=== PATIENT | male | born 1955 | race Caucasian/White ===

== ENCOUNTER 2017-08-29 08:35 | Day surgery (SDC) | payer BC, OTHER ==
[~2017-08-29 08:35] MED LIST: Lactated Ringers 1,000 ML IV SCH
[2017-08-29] MEDS ORDERED: Propofol 200 MG/20 ML SDV ONE ×2 (10:50→11:05)
[2017-08-29] MEDS ORDERED: fentaNYL 100 MCG/2 ML SDV ONE (10:50)
--- NOTE | 2017-08-29 17:45 | OR ---
DATE OF SURGERY: 08/29/2017 REFERRING PROVIDER: DANIELA Kohli PRIMARY CARE PHYSICIAN: Zion Raman M.D. PRE-OPERATIVE DIAGNOSES: Positive FIT stool card. This is the patient's first colonoscopy. There is no known family history of colon cancer or colon polyps. POST-OPERATIVE DIAGNOSES: 1. Total of 4 colon polyps removed. a. 8 mm cecal polyp removed with hot snare. b. 5 mm polyp at 90 cm (just outside the cecum) removed with hot snare. c. 6 mm polyp at 55 cm removed with hot snare. d. 3 mm polyp at 45 cm removed with cold forceps. 2. Mild sigmoid diverticulosis. PROCEDURE: Colonoscopy with polypectomy x4 (3 using hot snare and 1 using cold forceps). SURGEON: Mayito Whitehead M.D. ANESTHESIA: Monitored anesthesia care. BOWEL PREP: Good. Wojciech is a 62-year-old male who was brought to the endoscopy suite after discussing risks and benefits of the procedure. Informed consent was obtained for conscious sedation and colonoscopy with or without biopsy and/or polypectomy. We also discussed possibility of missed lesions. Pre-procedure exam was unremarkable. IV, oxygen, and monitors were placed. The patient was placed in the left lateral decubitus position. Sedation was administered and a digital rectal exam was performed which was unremarkable. Colonoscope was passed into the rectum and slowly advanced all the way to the cecum. Cecum was viewed and photographed. There was an 8 mm sessile cecal polyp which was removed with hot snare. Just outside the cecum there was a 5 mm polyp at 90 cm, also removed with hot snare. The colonoscope was slowly withdrawn and the mucosa was closed observed in a direct circumferential manner. Otherwise the ascending colon was unremarkable. The transverse colon revealed 6 mm polyp at 55 cm which was removed with hot snare. The descending colon revealed a 3 mm polyp at 45 cm which was removed with cold forceps. The sigmoid colon was remarkable for some mild diverticulosis. Retroflexion was performed and rectal mucosa was unremarkable. Scope was removed. The patient tolerated the procedure well. The patient was monitored until that baseline status. Discharge instructions were reviewed and the patient was discharged in good condition. COMPLICATIONS: None. TOTAL TIME: 22 minutes. ESTIMATED BLOOD LOSS: About 1 mL. RECOMMENDATIONS/FOLLOW-UP: We will wait results of path report to determine ideal followup interval. I would like to kindly thank Estuardo Pena for this referral. DMB: 08/29/2017 11:33:20 MODL: 08/29/2017 17:35:04 /[id number]
== END 2017-08-29 12:20 | disposition home or self-care (01) ==
LOC: VM.SDS 08:35
PROVIDERS: ATTEND Family Medicine
DX: Z12.11 Encounter for screening for malignant neoplasm of colon (principal); D12.0 Benign neoplasm of cecum; D12.4 Benign neoplasm of descending colon; D12.3 Benign neoplasm of transverse colon; K57.30 Diverticulosis of large intestine without perforation or abscess without bleeding; R19.5 Other fecal abnormalities; E78.5 Hyperlipidemia, unspecified; Z79.899 Other long term (current) drug therapy
CPT/HCPCS: 45380; 45385; J2704; J3010; J7120

== ENCOUNTER 2018-08-05 15:43 | Emergency (ER) | payer OTHER, BC ==
--- NOTE | 2018-08-05 16:22 | EDM.PDOC ---
ED HPI GENERAL MEDICAL PROBLEM - General Chief Complaint: Lower Extremity Injury/Pain Stated Complaint: Left lower back pain; head injury Time Seen by Provider: 08/05/18 16:00 Source of Information: Reports: Patient, RN, RN Notes Reviewed History Limitations: Reports: No Limitations - History of Present Illness INITIAL COMMENTS - FREE TEXT/NARRATIVE: Patient presents to the ED at [facility] after he sustained a posterior head injury and low back injury at work. Patient states he was walking across the cat walk when he misstepped, falling onto his left lateral hip and the back of his head. He denies any LOC. No previous injuries. He denies any headaches. No dizziness. Patient complaints of left lower back pain. No radiation of the pain. Patient denies any numbness, tingling, or paresthesia of any extremity. Onset: Today Onset Date: 08/05/18 Left Lumbar Pain Score (Numeric/FACES): 1 - Related Data Allergies Allergy/AdvReac Type Severity Reaction Status Date / Time No Known Allergies Allergy Verified 08/05/18 16:19 Home Meds: Home Meds [place]-3 Fatty Acids [[place]-3] 1,000 mg PO BID 08/26/17 [History] Saw [place] 2 cap PO DAILY 08/26/17 [History] atorvaSTATin [Lipitor] 40 mg PO BEDTIME 08/26/17 [History] Past Medical History HEENT History: Reports: None Cardiovascular History: Reports: None Respiratory History: Reports: None Gastrointestinal History: Reports: Other (See Below) Other Gastrointestinal History: BLOOD IN STOOL Genitourinary History: Reports: None Musculoskeletal History: Reports: None Other Musculoskeletal History: RIGHT WRIST FX. RIGHT KNEE PAIN Neurological History: Reports: None Psychiatric History: Reports: None Endocrine/Metabolic History: Reports: None Other Endocrine/Metabolic History: FATIGUE Hematologic History: Reports: None Oncologic (Cancer) History: Reports: None Dermatologic History: Reports: None - Past Surgical History HEENT Surgical History: Reports: None Cardiovascular Surgical History: Reports: None GI Surgical History: Reports: Cholecystectomy Musculoskeletal Surgical History: Reports: None Oncologic Surgical History: Reports: None Review of Systems - Review of Systems Review Of Systems: See Below Constitutional: Denies: Chills, Fever Respiratory: Denies: Shortness of Breath, Cough Cardiovascular: Denies: Chest Pain, Palpitations Musculoskeletal: Reports: Back Pain, Muscle Pain, Muscle Stiffness. Denies: Neck Pain, Shoulder Pain Skin: Reports: Wound Neurological: Denies: Dizziness, Headache, Numbness, Paresthesia, Tingling ED EXAM, GENERAL - Physical Exam Exam: See Below Exam Limited By: No Limitations General Appearance: Alert, No Apparent Distress Eye Exam: Bilateral Eye: EOMI, Normal Inspection, PERRL Ears: Normal External Exam, Normal Canal, Normal TMs Ear Exam: Bilateral Ear: TM normal Head: Normocephalic, Other (4cm posterior occipital scalp abrasion; no bleeding , clean, no infection) Neck: Supple, Non-Tender Respiratory/Chest: No Respiratory Distress, Lungs Clear, Normal Breath Sounds Cardiovascular: Normal Peripheral Pulses, Regular Rate, Rhythm Back Exam: Normal Inspection, Full Range of Motion, Paraspinal Tenderness (Left) Extremities: Normal Inspection Neurological: Alert, Oriented Skin Exam: Warm, Dry, Normal Color, Wound/Incision (4cm posterior occipital scalp abrasion) Course - Vital Signs Last Recorded V/S: Last Vital Signs Temp 37.3 C 08/05/18 16:00 Pulse 75 08/05/18 16:00 Resp 16 08/05/18 16:00 BP 155/81 H 08/05/18 16:00 Pulse Ox 98 08/05/18 16:00 - Radiology Interpretation Free Text/Narrative:: CT Head: No acute intracranial findings CT C-Spine: No acute fracture or compression deformity CT Lumbar: No acute fractures of the lumbar spine; there is an acute nondisplaced fractures of the sacrum involving the S3 and S4 posterior elements with overlying soft tissue contusion See scanned reports in EMR for details CT Results Date: 08/05/18 CT Results Time: 17:04 Departure - Departure Time of Disposition: 18:13 Disposition: Home, Self-Care 01 Condition: Good Clinical Impression: Encounter related to worker's compensation claim Fall Qualifiers: Encounter type: initial encounter Qualified Code(s): W19.XXXA - Unspecified fall, initial encounter Head injury Qualifiers: Encounter type: initial encounter Qualified Code(s): S09.90XA - Unspecified injury of head, initial encounter Scalp abrasion Qualifiers: Encounter type: initial encounter Qualified Code(s): S00.01XA - Abrasion of scalp, initial encounter Sacral fracture, closed Qualifiers: Encounter type: initial encounter Zone of sacrum fracture: zone III of sacrum Fracture alignment: nondisplaced Qualified Code(s): S32.130A - Nondisplaced Zone III fracture of sacrum, initial encounter for closed fracture - Discharge Information *PRESCRIPTION DRUG MONITORING PROGRAM REVIEWED*: Not Applicable *COPY OF PRESCRIPTION DRUG MONITORING REPORT IN PATIENT GREGORIO: Not Applicable Instructions: Abrasion, [id number], Tailbone Injury Referrals: Zion Raman MD [Primary Care Provider] - Forms: ED Department Discharge Additional Instructions: 1. Stay well hydrated and rest 2. Weight baring is ok 3. Contact your PCP is you develop problems with urination, bowel movements, and leg symptoms 4. No work restrictions 5. Call with any questions or concerns 6. See your PCP as symptoms warrant ED Communication - ED Communication Date/Time Date: 08/05/18 Time Called: 18:00 - Discussed Case With (1) Discussed Case With (1): Outpatient Provider (Gloria Blankenship) - Problem List Review Problem List Initiated/Reviewed/Updated: Yes - Assessment/Plan Assessment:: Fall Head injury Low back injury Sacral fractures Workers Comp Plan: Case discussed with Gloria Blankenship [place]. Recommendations made; no surgical intervention. See discharge instructions
--- NOTE | 2018-08-05 17:18 | CT ---
[id number] CT/CT Head WO IV; CT/CT Cervical Spine WO IV; CT/CT Lumbar Spine WO IV Exam: CT Head WO IV, CT Cervical Spine WO IV, CT Lumbar Spine WO IV Indication:FELL, HIT HEAD, NO LOSS OF CONSCIOUSNESS, LEFT LOWER Comparison: No prior imaging for comparison. Discussion: No acute intracranial hemorrhage or extra-axial fluid collection. No CT evidence of acute large vessel ischemia. No hydrocephalus. No calvarial fracture. CT cervical spine: Incomplete fusion of the C1 posterior arch, normal variant of anatomy. Moderate degenerative change at the atlantoaxial articulation. Scattered changes of mild to moderate spondylosis elsewhere in the spine, including C5-6 degenerative disc disease with disc osteophyte complex and intervertebral disc height loss. No acute fracture or compression deformity. No spondylolisthesis. Prevertebral soft tissues are normal thickness. Soft tissues of the neck are unremarkable. Lung apices are clear. CT lumbar spine: Acute nondisplaced fracture of the S3 spinous process, seen best on series 5 image 35. Additionally, there are acute fractures of the bilateral S3-4 articulating facets at the inferior margin of the sacral ala (series 4 images 80 through 83). There is no overlying soft tissue contusion as well. No fractures in the lumbar spine. Moderate changes of spondylosis throughout the lumbar spine, including bridging anterior and lateral osteophytes. Impression: Acute nondisplaced fractures of the sacrum involving the S3 and S4 posterior elements with overlying soft tissue contusion, described above. Negative for cervical or lumbar spine fracture. Normal examination of the brain. Jeff Gold MD 08/05/18 [id number] Thank you for allowing us to participate in the care of your patient.
== END 2018-08-05 18:22 | disposition home or self-care (01) ==
LOC: VM.ED 15:43
DX: S09.90XA Unspecified injury of head, initial encounter (principal); S00.01XA Abrasion of scalp, initial encounter; S32.130A Nondisplaced Zone III fracture of sacrum, initial encounter for closed fracture; Z79.899 Other long term (current) drug therapy; W19.XXXA Unspecified fall, initial encounter
CPT/HCPCS: 70450; 72125; 72131; 99284

== ENCOUNTER 2023-02-14 08:35 | Day surgery (SDC) | payer MEDICARE, BC ==
[2023-02-14] MEDS ORDERED: fentaNYL 100 MCG/2 ML SDV ONE (12:07)
[2023-02-14] MEDS ORDERED: Propofol 200 MG/20 ML SDV ONE ×2 (12:07→12:11)
== END 2023-02-14 13:55 | disposition home or self-care (01) ==
LOC: VM.SDS 08:35
PROVIDERS: ATTEND Family Medicine
DX: Z12.11 Encounter for screening for malignant neoplasm of colon (principal); D12.2 Benign neoplasm of ascending colon; D12.8 Benign neoplasm of rectum; D12.3 Benign neoplasm of transverse colon; K57.30 Diverticulosis of large intestine without perforation or abscess without bleeding; E78.5 Hyperlipidemia, unspecified; Z98.890 Other specified postprocedural states; Z90.79 Acquired absence of other genital organ(s); Z79.899 Other long term (current) drug therapy
CPT/HCPCS: 00811; 88305; J2704; J3010; J7120